=== PATIENT | female | born 1980 | race Hispanic/Latino ===

== ENCOUNTER → 2020-07-25 | Outpatient (CLI) | payer BC ==
[~2020-07-25] MED LIST: AUGMENTIN 875-1 EACH PO; DIATRIZOATE MEGL/DIATRIZOA SOD 30 ML BTL PO ONE; DICYCLOMINE HCL20 MG PO; FLAGYL500 MG PO; IOPAMIDOL 370 MG/ML 200 ML INFUS..BTL INJ ONE; LEVAQUIN500 MG PO; MACRODANTIN100 MG PO; SODIUM CHLORIDE 0.9% 50ML 50 ML ONE; ZOFRAN ODT4 MG SL
--- NOTE | 2020-07-25 10:59 | Diagnostic Imaging Report ---
CT of the abdomen and pelvis, with contrast, 07/25/2020. History: Pelvic mass. Inclusion cyst. Comparison: None available. Technique: Multidetector CT scanning of the abdomen and pelvis was performed from the level of the lung bases to the inferior pubic rami after intravenous and oral administration of contrast. Coronal and sagittal multiplanar reformations were obtained. RADIATION DOSE: Total DLP: 760 mGy*cm Dose modulation, iterative reconstruction, and/or weight based adjustment of the mA/kV was utilized to reduce the radiation dose to as low as reasonably achievable. Discussion: LUNG BASES: No visualized abnormalities. ABDOMEN: Cholecystectomy clips are present. The liver, biliary tree, spleen, pancreas, adrenal glands, and kidneys are normal. The hepatic vein, portal vein, and splenic vein are patent. The abdominal aorta is within normal limits for size. A retroaortic left renal vein is noted. The stomach, small bowel, and large bowel are unremarkable. Appendectomy clips are present. There is no evidence of adenopathy or free fluid. PELVIS: A 3.1 cm cyst is present in the right adnexa, almost certainly benign, no follow-up imaging recommended. Several loculated appearing fluid collections are seen within the pelvis superior to the bladder extending into the left lower paracolic gutter. There is no evidence of enhancing mass. The bladder is unremarkable. The uterus is absent. There is no evidence of free fluid or adenopathy. BONES AND SOFT TISSUES: No acute abnormality. IMPRESSION: 1. Status post cholecystectomy. Otherwise unremarkable abdomen. 2. Status post hysterectomy. Loculated ascites versus peritoneal inclusion cysts are noted in the left pelvis. Signed by: Maxim Sewell on 07/25/2020 10:56 AM
== END ==
LOC: CT 08:18
PROVIDERS: ATTEND Obstetrics & Gynecology Gynecologic Oncology
DX: R19.00 Intra-abdominal and pelvic swelling, mass and lump, unspecified site (principal); L72.0 Epidermal cyst
CPT/HCPCS: 74177; Q9967